=== PATIENT | male | born 1990 | race Caucasian/White ===

== ENCOUNTER 2019-08-09 08:00 | Outpatient (RCR) | payer BC | END 2019-08-17 | disposition home or self-care (01) | LOC: WSPT | DX: S83.31XD Tear of articular cartilage of right knee, current, subsequent encounter (principal); M24.10 Other articular cartilage disorders, unspecified site; S83.241D Other tear of medial meniscus, current injury, right knee, subsequent encounter; Z48.89 Encounter for other specified surgical aftercare | CPT/HCPCS: G0283-GP ==

== ENCOUNTER 2020-07-31 08:15 | Outpatient (RCR) | payer BC | END 2020-08-12 | disposition home or self-care (01) | LOC: WSPT | DX: M21.161 Varus deformity, not elsewhere classified, right knee (principal); Z98.890 Other specified postprocedural states | CPT/HCPCS: G0283-GP ==

== ENCOUNTER 2020-08-13 08:05 | Outpatient (RCR) | payer BC | END 2020-08-18 15:17 | disposition home or self-care (01) | LOC: WSPT 08:05 | DX: Z98.890 Other specified postprocedural states (principal) ==